=== PATIENT | female | born 1960 | race Caucasian/White ===

== ENCOUNTER 2021-04-28 21:37 | Emergency (ER) | payer MEDICARE, OTHER ==
[~2021-04-28 21:37] MED LIST: ASCORBIC ACID500 MG PO; ATROVENT HFA12.9 GM INH; BACTRIM DS TAB1 EACH PO; CELEXA10 MG PO; CLARITIN10 M2 PO; COLESTIPOL HCL1 GM PO; FLORINEF0.1 MG PO; FOLIC ACID1 MG PO; IBUPROFEN800 MG PO; IMODIUM2 MG PO; LEVAQUIN500 MG PO; LEVOTHYROXINE100 MCG PO; MEDROL 4MG DOSEP4 MG PO; PRILOSEC20 MG PO; PROTONIX 40MG T40 MG PO; PROVENTIL HFA6.7 GM INH; SEROQUEL 25MG T25 MG PO; SYNTHROID50 MCG PO; SYNTHROID75 MCG PO; VITAMIN D-32000 UNIT PO; VITAMIN D3 PO; ZOFRAN4 MG PO; ZPAK PO
[2021-04-28] MEDS ORDERED: AUGMENTIN 875-1 EACH PO (23:43)
== END 2021-04-29 00:10 | disposition home or self-care (01) ==
LOC: FER 21:37
DX: S01.21XA Laceration without foreign body of nose, initial encounter (principal); W18.12XA Fall from or off toilet with subsequent striking against object, initial encounter; Y92.002 Bathroom of unspecified non-institutional (private) residence as the place of occurrence of the external cause
CPT/HCPCS: 70486

== ENCOUNTER 2021-05-17 20:51 | Day surgery (SDCO) | payer MEDICARE, OTHER ==
[~2021-05-17] VITALS: Ht 185.4 cm; Wt 106.8 kg
[~2021-05-17 20:51] MED LIST changes: +AUGMENTIN 875-1 EACH PO
[2021-05-17 21:37] LABS: BASOPHIL 1.2 % (0-2); EOSINOPHIL 0.3 % (0-5); HCT 37.2 % (37.0-47.0); HGB 12.2 g/dl (12.5-16.0); LYMPHOCYTE 13.5 % (15-48); MCH 33.6 pg (25.0-31.0); MCHC 32.8 g/dL (32.0-36.0); MCV 102.5 fL (78.0-100.0); MONOCYTE 12.9 % (0-12); MPV 9.8 fL (6.0-9.5); NEUTROPHIL 70.3 % (41-80); NRBC 0; PLT 205 K/uL (150-400); RBC 3.63 M/uL (4.20-5.40); RDW 13.9 % (11.5-14.0); WBC 3.4 K/uL (4.0-10.5)
[2021-05-17 22:08] LABS: LACTIC ACID 1.5 mmol/L (0.4-1.9)
[2021-05-17 22:17] LABS: ALBUMIN 2.8 g/dL (3.4-5.0); BILIRUBIN - TOTAL 0.3 mg/dL (0.2-1.0); BUN/CREAT RATIO (CALC) 15.6 RATIO; C-REACTIVE PROTEIN 8.8 mg/dL (<=0.90); CREATININE 0.96 mg/dL (0.51-0.95); FT4 (FREE T4) 0.9 ng/dL (0.76-1.46); GLOBULIN (CALCULATION) 3.8 g/dL; POTASSIUM 3.9 mmol/L (3.5-5.1); TOTAL PROTEIN 6.6 g/dL (6.4-8.2)
[2021-05-17 22:55] LABS: CORONAVIRUS 2019 SARS-COV-2 NEGATIVE (NEGATIVE); INFLUENZA A NAA NEGATIVE (NEGATIVE)
[2021-05-17 23:44] LABS: BILIRUBIN NEGATIVE (NEGATIVE); BLOOD NEGATIVE Ery/uL (NEGATIVE); CLARITY CLEAR (CLEAR); COLOR YELLOW (YELLOW); GLUCOSE (U) NORMAL (NORMAL); LEUKOCYTES NEGATIVE Leu/uL (NEGATIVE); NITRITE NEGATIVE (NEGATIVE); PROTEIN NEGATIVE (NEGATIVE); SPECIFIC GRAVITY 1.015 (1.001-1.030); UROBILINOGEN 0.2 mg/dL (0.2-1.0)
[2021-05-18] MEDS ORDERED: VITAMIN D325 MC2 PO (02:24)
[2021-05-18] MEDS ORDERED: DEPAKOTE SPRIN125 M2 PO (02:26)
[2021-05-18] MEDS ORDERED: LEVOTHYROXINE88 MC1 PO (02:27)
[2021-05-18] MEDS ORDERED: PROTONIX 40MG T40 MG PO (02:27)
[2021-05-18] MEDS ORDERED: SEROQUEL 100MG100 MG PO (02:28)
[2021-05-19 07:48] LABS: BASOPHIL 0.5 % (0-2); EOSINOPHIL 2.1 % (0-5); HCT 35.2 % (37.0-47.0); HGB 11.6 g/dl (12.5-16.0); LYMPHOCYTE 54.8 % (15-48); MCH 33.9 pg (25.0-31.0); MCV 102.9 fL (78.0-100.0); MONOCYTE 14.4 % (0-12); MPV 10.3 fL (6.0-9.5); NEUTROPHIL 27.1 % (41-80); NRBC 0; PLT 150 K/uL (150-400); RBC 3.42 M/uL (4.20-5.40); RDW 13.9 % (11.5-14.0)
[2021-05-19 07:53] LABS: WBC 1.9 K/uL (4.0-10.5)
[2021-05-19 08:11] LABS: ALBUMIN 2.3 g/dL (3.4-5.0); BILIRUBIN - TOTAL 0.2 mg/dL (0.2-1.0); BUN/CREAT RATIO (CALC) 12.7 RATIO; C-REACTIVE PROTEIN 6.2 mg/dL (<=0.90); CREATININE 0.71 mg/dL (0.51-0.95); GLOBULIN (CALCULATION) 3.8 g/dL; POTASSIUM 3.1 mmol/L (3.5-5.1); TOTAL PROTEIN 6.1 g/dL (6.4-8.2)
--- NOTE | 2021-05-19 16:59 | NUR ---
05/19 Ms. Jimenez has a dx of Downs Syndrome and Autism. She has a guardian, Dottie Pro. Ms. Jimenez lives with a caregiver, Linette Tate, [phone]. She has 16 hours per day of caregivers through [employer]. Discharge plans are for her to return to the caregivers home. She does not use any DME or HH services.
[2021-05-20 06:54] LABS: BASOPHIL 1.1 % (0-2); EOSINOPHIL 1.4 % (0-5); HCT 40.6 % (37.0-47.0); HGB 13.4 g/dl (12.5-16.0); LYMPHOCYTE 51.6 % (15-48); MCH 33.4 pg (25.0-31.0); MCV 101.2 fL (78.0-100.0); MONOCYTE 13.7 % (0-12); NEUTROPHIL 31.8 % (41-80); NRBC 0; PLT 176 K/uL (150-400); RBC 4.01 M/uL (4.20-5.40); RDW 13.5 % (11.5-14.0); WBC 2.8 K/uL (4.0-10.5)
[2021-05-20 07:24] LABS: ALBUMIN 2.7 g/dL (3.4-5.0); BILIRUBIN - TOTAL 0.2 mg/dL (0.2-1.0); BUN/CREAT RATIO (CALC) 17.4 RATIO; C-REACTIVE PROTEIN 5.7 mg/dL (<=0.90); CREATININE 0.69 mg/dL (0.51-0.95); GLOBULIN (CALCULATION) 3.9 g/dL; POTASSIUM 4.1 mmol/L (3.5-5.1); TOTAL PROTEIN 6.6 g/dL (6.4-8.2)
[2021-05-21 07:58] LABS: BASOPHIL 1.3 % (0-2); HGB 13.2 g/dl (12.5-16.0); MCH 33.6 pg (25.0-31.0); MCV 101.8 fL (78.0-100.0); NEUTROPHIL 35.8 % (41-80); NRBC 0; PLT 216 K/uL (150-400); RBC 3.93 M/uL (4.20-5.40); RDW 13.5 % (11.5-14.0)
[2021-05-21 08:01] LABS: LYMPHOCYTE 50.2 % (15-48)
[2021-05-21 08:16] LABS: ALBUMIN 2.8 g/dL (3.4-5.0); BILIRUBIN - TOTAL 0.2 mg/dL (0.2-1.0); BUN/CREAT RATIO (CALC) 19.2 RATIO; CREATININE 0.78 mg/dL (0.51-0.95); GLOBULIN (CALCULATION) 4.8 g/dL; MAGNESIUM 2.4 mg/dL (1.8-2.4); POTASSIUM 3.9 mmol/L (3.5-5.1); TOTAL PROTEIN 7.6 g/dL (6.4-8.2)
== END 2021-05-21 15:57 | disposition home or self-care (01) ==
LOC: FER 20:51 → FMS 05-18 00:31
PROVIDERS: Allergy & Immunology Allergy; Emergency Medicine Emergency Medical Services; Hospitalist; Internal Medicine; ADMIT Family Medicine
DX: R50.9 Fever, unspecified (principal); D72.819 Decreased white blood cell count, unspecified; R63.4 Abnormal weight loss; Q90.9 Down syndrome, unspecified; E27.1 Primary adrenocortical insufficiency; F84.0 Autistic disorder; G91.9 Hydrocephalus, unspecified; E03.9 Hypothyroidism, unspecified; E87.6 Hypokalemia; F31.9 Bipolar disorder, unspecified; R05.9 Cough, unspecified; R27.0 Ataxia, unspecified; D50.9 Iron deficiency anemia, unspecified; N18.2 Chronic kidney disease, stage 2 (mild); R41.82 Altered mental status, unspecified; Z20.822 Contact with and (suspected) exposure to COVID-19; Z86.16 Personal history of COVID-19
CPT/HCPCS: 36415; 70450; 70551; 71045; 71260; 80048; 80053; 81003; 82150; 82550; 82607; 82728; 83605; 83690; 83735; 84145; 84439; 84443; 84484; 85025; 86140; 87040; 87088; 93005; 97162; 97166; 97530-GP; 97535; G0378; J0692; J1650; J2543; J7030; Q9967; U0002

== ENCOUNTER 2021-06-24 13:15 | Inpatient (IN) | payer MEDICARE, OTHER ==
[~2021-06-24] VITALS: Ht 144.8 cm; Wt 42.4 kg
[~2021-06-24 13:15] MED LIST changes: +DEPAKOTE SPRIN125 M2 PO; +LEVOTHYROXINE88 MC1 PO; +SEROQUEL 100MG100 MG PO; +VITAMIN D325 MC2 PO
[2021-06-24 15:36] LABS: BASOPHIL 0.5 % (0-2); EOSINOPHIL 0.5 % (0-5); HCT 37.5 % (37.0-47.0); HGB 11.8 g/dl (12.5-16.0); LYMPHOCYTE 5.3 % (15-48); MCH 33.4 pg (25.0-31.0); MCHC 31.5 g/dL (32.0-36.0); MCV 106.2 fL (78.0-100.0); MONOCYTE 8.9 % (0-12); MPV 10.4 fL (6.0-9.5); NEUTROPHIL 84.3 % (41-80); NRBC 0; PLT 176 K/uL (150-400); RBC 3.53 M/uL (4.20-5.40); RDW 15.6 % (11.5-14.0); WBC 12.8 K/uL (4.0-10.5)
[2021-06-24 16:12] LABS: ALBUMIN 2.4 g/dL (3.4-5.0); ALKALINE PHOSHATASE 77 U/L (46-116); ALT 31 U/L (14-59); AST 32 U/L (15-37); BILIRUBIN - TOTAL 0.4 mg/dL (0.2-1.0); BUN 26 mg/dL (7-18); BUN/CREAT RATIO (CALC) 20.8 RATIO; C-REACTIVE PROTEIN >18.00 mg/dL (<=0.90); CHLORIDE 112 mmol/L (98-107); CO2 (BICARBONATE) 29 mmol/L (21-32); CREATININE 1.25 mg/dL (0.51-0.95); GLOBULIN (CALCULATION) 3.7 g/dL; GLUCOSE 99 mg/dL (74-106); POTASSIUM 3.6 mmol/L (3.5-5.1); TOTAL PROTEIN 6.1 g/dL (6.4-8.2)
[2021-06-24 16:14] LABS: BILIRUBIN 1+ mg/dL (NEGATIVE); BLOOD NEGATIVE Ery/uL (NEGATIVE); CLARITY CLEAR (CLEAR); COLOR YELLOW (YELLOW); GLUCOSE (U) NORMAL (NORMAL); LEUKOCYTES NEGATIVE Leu/uL (NEGATIVE); NITRITE NEGATIVE (NEGATIVE); PROTEIN TRACE (LOW) mg/dL (NEGATIVE); SPECIFIC GRAVITY >=1.030 (1.001-1.030); pH 5.5 (5.0-9.0)
[2021-06-24 16:16] LABS: CORONAVIRUS 2019 SARS-COV-2 NEGATIVE (NEGATIVE); INFLUENZA A NAA NEGATIVE (NEGATIVE)
[2021-06-24 16:19] LABS: LACTIC ACID 0.9 mmol/L (0.4-1.9)
[2021-06-24 16:27] LABS: AMORPHOUS URATES CRYSTALS TRACE; BACTERIA TRACE; MUCOUS TRACE; SQUAMOUS EPITHELIAL CELLS RARE; URINARY RBC RARE
[2021-06-25 06:02] LABS: BASOPHIL 0.4 % (0-2); EOSINOPHIL 1.7 % (0-5); HGB 10.1 g/dl (12.5-16.0); LYMPHOCYTE 9.1 % (15-48); MCH 33.1 pg (25.0-31.0); MCHC 30.6 g/dL (32.0-36.0); MCV 108.2 fL (78.0-100.0); MONOCYTE 7.6 % (0-12); MPV 10.9 fL (6.0-9.5); NEUTROPHIL 80.6 % (41-80); NRBC 0; PLT 166 K/uL (150-400); RBC 3.05 M/uL (4.20-5.40); RDW 15.2 % (11.5-14.0); WBC 7.8 K/uL (4.0-10.5)
[2021-06-25 06:16] LABS: C-REACTIVE PROTEIN 14.5 mg/dL (<=0.90); CREATININE 0.87 mg/dL (0.51-0.95); POTASSIUM 3.9 mmol/L (3.5-5.1)
[2021-06-26 06:52] LABS: BASOPHIL 0.7 % (0-2); HCT 34.6 % (37.0-47.0); HGB 10.9 g/dl (12.5-16.0); LYMPHOCYTE 15.8 % (15-48); MCH 33.4 pg (25.0-31.0); MCHC 31.5 g/dL (32.0-36.0); MCV 106.1 fL (78.0-100.0); MONOCYTE 8.8 % (0-12); MPV 11.2 fL (6.0-9.5); NEUTROPHIL 71.5 % (41-80); NRBC 0; PLT 201 K/uL (150-400); RBC 3.26 M/uL (4.20-5.40); RDW 14.7 % (11.5-14.0)
[2021-06-26 07:11] LABS: BUN/CREAT RATIO (CALC) 12.9 RATIO; CREATININE 0.7 mg/dL (0.51-0.95); POTASSIUM 2.9 mmol/L (3.5-5.1)
[2021-06-26 14:51] LABS: BUN/CREAT RATIO (CALC) 19.4 RATIO; CREATININE 0.67 mg/dL (0.51-0.95); POTASSIUM 3.1 mmol/L (3.5-5.1)
[2021-06-26] MEDS ORDERED: VIBRAMYCIN100 MG PO (16:48)
== END 2021-06-26 18:00 | disposition home or self-care (01) | DRG 193 ==
LOC: FER 13:15 → FTCU 17:19 → FMS 06-25 12:02
PROVIDERS: Emergency Medicine; ADMIT Family Medicine
DX: J18.9 Pneumonia, unspecified organism (principal); G93.41 Metabolic encephalopathy; N17.9 Acute kidney failure, unspecified; N30.00 Acute cystitis without hematuria; E87.6 Hypokalemia; D53.9 Nutritional anemia, unspecified; E86.0 Dehydration; Z20.822 Contact with and (suspected) exposure to COVID-19; E03.9 Hypothyroidism, unspecified; Q90.9 Down syndrome, unspecified; Z98.42 Cataract extraction status, left eye; Z98.41 Cataract extraction status, right eye; Z98.890 Other specified postprocedural states
CPT/HCPCS: 36415; 71045; 80048; 80053; 81001; 83605; 84145; 85025; 86140; 87040; 87088; 93005; 97162; 97530-GP; J0696; J1650; J1956; J7030; J7050; U0002

== ENCOUNTER 2021-07-26 14:29 | Emergency (ER) | payer MEDICARE, OTHER ==
[~2021-07-26 14:29] MED LIST changes: +VIBRAMYCIN100 MG PO
[2021-07-26 15:55] LABS: BASOPHIL 1.2 % (0-2); EOSINOPHIL 0.7 % (0-5); HCT 37.3 % (37.0-47.0); HGB 11.9 g/dl (12.5-16.0); LYMPHOCYTE 14.9 % (15-48); MCH 33.3 pg (25.0-31.0); MCHC 31.9 g/dL (32.0-36.0); MCV 104.5 fL (78.0-100.0); MONOCYTE 11.9 % (0-12); MPV 9.7 fL (6.0-9.5); NEUTROPHIL 70.6 % (41-80); NRBC 0; PLT 278 K/uL (150-400); RBC 3.57 M/uL (4.20-5.40); RDW 15.1 % (11.5-14.0); WBC 5.6 K/uL (4.0-10.5)
[2021-07-26 16:08] LABS: INR 1.28 (0.9-1.2); PROTHROMBIN TIME 15.3 SECONDS (11.8-13.4); PTT 31.2 SECONDS (24.4-34.7)
[2021-07-26 16:17] LABS: ALBUMIN 2.8 g/dL (3.4-5.0); BILIRUBIN - TOTAL 0.2 mg/dL (0.2-1.0); BUN/CREAT RATIO (CALC) 16.2 RATIO; CREATININE 0.68 mg/dL (0.51-0.95); GLOBULIN (CALCULATION) 3.9 g/dL; TOTAL PROTEIN 6.7 g/dL (6.4-8.2)
== END 2021-07-26 17:10 | disposition home or self-care (01) ==
LOC: FER 14:29
PROVIDERS: Emergency Medicine
DX: R11.10 Vomiting, unspecified (principal); K59.00 Constipation, unspecified
CPT/HCPCS: 36415; 71045; 80053; 82607; 82746; 83690; 85025; 85610; 85730

== ENCOUNTER 2021-10-04 13:02 | Inpatient (IN) | payer MEDICARE, OTHER ==
[~2021-10-04] VITALS: Ht 137.2 cm; Wt 37.7 kg
[2021-10-04 14:06] LABS: BILIRUBIN NEGATIVE (NEGATIVE); BLOOD NEGATIVE Ery/uL (NEGATIVE); CLARITY CLEAR (CLEAR); COLOR YELLOW (YELLOW); GLUCOSE (U) NORMAL (NORMAL); LEUKOCYTES NEGATIVE Leu/uL (NEGATIVE); NITRITE NEGATIVE (NEGATIVE); PROTEIN NEGATIVE (NEGATIVE); SPECIFIC GRAVITY 1.015 (1.001-1.030)
[2021-10-04 14:15] LABS: BASOPHIL 0.8 % (0-2); EOSINOPHIL 0.4 % (0-5); HCT 40.5 % (37.0-47.0); HGB 13.3 g/dl (12.5-16.0); LYMPHOCYTE 15.8 % (15-48); MCH 33.9 pg (25.0-31.0); MCHC 32.8 g/dL (32.0-36.0); MCV 103.3 fL (78.0-100.0); MONOCYTE 10.5 % (0-12); NEUTROPHIL 71.4 % (41-80); NRBC 0; PLT 174 K/uL (150-400); RBC 3.92 M/uL (4.20-5.40); RDW 13.9 % (11.5-14.0)
[2021-10-04 14:16] LABS: WBC 5.3 K/uL (4.0-10.5)
[2021-10-04 14:36] LABS: BUN/CREAT RATIO (CALC) 11.2 RATIO; CREATININE 0.89 mg/dL (0.51-0.95); POTASSIUM 3.7 mmol/L (3.5-5.1)
[2021-10-04 14:42] LABS: CORONAVIRUS 2019 SARS-COV-2 NEGATIVE (NEGATIVE); INFLUENZA A NAA NEGATIVE (NEGATIVE)
[2021-10-04] MEDS ORDERED: ALLEGRA ALLERG180 MG PO (17:20)
--- NOTE | 2021-10-04 18:28 | NUR ---
PER REPORT FROM ER BP 177/85 AT 1828
[2021-10-05 05:51] LABS: BASOPHIL 0.1 % (0-2); EOSINOPHIL 0 % (0-5); HCT 36.6 % (37.0-47.0); LYMPHOCYTE 6.2 % (15-48); MCH 33.9 pg (25.0-31.0); MCHC 32.8 g/dL (32.0-36.0); MCV 103.4 fL (78.0-100.0); MONOCYTE 6.2 % (0-12); MPV 10.3 fL (6.0-9.5); NRBC 0; PLT 160 K/uL (150-400); RBC 3.54 M/uL (4.20-5.40); RDW 13.9 % (11.5-14.0)
[2021-10-05 05:54] LABS: WBC 13.8 K/uL (4.0-10.5)
[2021-10-05 06:08] LABS: BUN/CREAT RATIO (CALC) 11.4 RATIO; C-REACTIVE PROTEIN 13.8 mg/dL (<=0.90); CREATININE 1.4 mg/dL (0.51-0.95); IRON % SATURATION 8.3 %SAT (20-50); POTASSIUM 4.1 mmol/L (3.5-5.1)
--- NOTE | 2021-10-05 15:49 | NUR ---
RD visited room to obtain information re; wt history, food preferences; clinical safety specialist present providing some information however requested talk with primary caregiver for more specific information. will revisit tomorrow. will add ONS to trays and cont POC
[2021-10-06 06:51] LABS: BASOPHIL 0.2 % (0-2); EOSINOPHIL 0.2 % (0-5); HCT 33.1 % (37.0-47.0); LYMPHOCYTE 8.8 % (15-48); MCH 34.1 pg (25.0-31.0); MCHC 33.2 g/dL (32.0-36.0); MCV 102.5 fL (78.0-100.0); MONOCYTE 3.7 % (0-12); MPV 10.2 fL (6.0-9.5); NEUTROPHIL 86.1 % (41-80); NRBC 0; PLT 172 K/uL (150-400); RBC 3.23 M/uL (4.20-5.40); RDW 14.2 % (11.5-14.0); WBC 13.3 K/uL (4.0-10.5)
[2021-10-06 07:20] LABS: BUN/CREAT RATIO (CALC) 18.2 RATIO; CREATININE 1.1 mg/dL (0.51-0.95); POTASSIUM 3.1 mmol/L (3.5-5.1)
[2021-10-07 07:18] LABS: BASOPHIL 0.3 % (0-2); EOSINOPHIL 0.1 % (0-5); HCT 32.6 % (37.0-47.0); HGB 10.7 g/dl (12.5-16.0); LYMPHOCYTE 10.1 % (15-48); MCH 33.5 pg (25.0-31.0); MCHC 32.8 g/dL (32.0-36.0); MCV 102.2 fL (78.0-100.0); MONOCYTE 6.2 % (0-12); MPV 10.2 fL (6.0-9.5); NEUTROPHIL 81.7 % (41-80); NRBC 0; PLT 191 K/uL (150-400); RBC 3.19 M/uL (4.20-5.40); RDW 13.9 % (11.5-14.0); WBC 7.6 K/uL (4.0-10.5)
[2021-10-07 07:31] LABS: BUN/CREAT RATIO (CALC) 18.1 RATIO; CREATININE 0.83 mg/dL (0.51-0.95); POTASSIUM 3.7 mmol/L (3.5-5.1)
--- NOTE | 2021-10-07 12:45 | NUR ---
10/07 21 Ms. Jimenez's guardian is Dottie Venita - [phone]. Ms. Jimenez lives with her caregiver, Linette Tate, . She has a hospital bed, bed alarm, s. chair and transfer chair. - [facility] provides case management. [facility]
[2021-10-08 06:37] LABS: BASOPHIL 1.3 % (0-2); EOSINOPHIL 0.4 % (0-5); HCT 33.4 % (37.0-47.0); LYMPHOCYTE 18.5 % (15-48); MCH 33.5 pg (25.0-31.0); MCHC 32.9 g/dL (32.0-36.0); MCV 101.8 fL (78.0-100.0); MONOCYTE 7.1 % (0-12); MPV 10.3 fL (6.0-9.5); NEUTROPHIL 67.3 % (41-80); NRBC 0; PLT 203 K/uL (150-400); RBC 3.28 M/uL (4.20-5.40); RDW 14.1 % (11.5-14.0)
[2021-10-08 06:45] LABS: WBC 5.5 K/uL (4.0-10.5)
[2021-10-08 07:00] LABS: BUN/CREAT RATIO (CALC) 14.1 RATIO; CREATININE 0.78 mg/dL (0.51-0.95); POTASSIUM 3.1 mmol/L (3.5-5.1)
--- NOTE | 2021-10-08 15:46 | NUR ---
10/08/21 Dottie Jimenez, guardian, has requested Hospice services. A referral was made to [facility]. Ms. Ramesh will contact Ms. Pro. Dr. Llanos will review for appropriateness for Hospice. Dr. Llanos is also patient's PCP.
[2021-10-09 07:21] LABS: BASOPHIL 2.6 % (0-2); HCT 35.4 % (37.0-47.0); HGB 11.5 g/dl (12.5-16.0); LYMPHOCYTE 23.5 % (15-48); MCH 33.1 pg (25.0-31.0); MCHC 32.5 g/dL (32.0-36.0); MONOCYTE 10.2 % (0-12); NEUTROPHIL 52.3 % (41-80); NRBC 0; PLT 222 K/uL (150-400); RBC 3.47 M/uL (4.20-5.40); RDW 13.9 % (11.5-14.0); WBC 3.8 K/uL (4.0-10.5)
[2021-10-09 07:42] LABS: BUN/CREAT RATIO (CALC) 8.6 RATIO; CREATININE 0.7 mg/dL (0.51-0.95)
--- NOTE | 2021-10-09 13:15 | NUR ---
10/09/21 Hospice has accepted patient for admission today. 02 has been delivered to home and hospital. Linette, caregiver, will transport home, .
[2021-10-09] MEDS ORDERED: NEBULIZER UNIT NEB (13:42)
[2021-10-09] MEDS ORDERED: DUONEB 2.5-0.5M1 AMP NEB (13:42)
[2021-10-09] MEDS ORDERED: CLARITIN10 MG PO (13:42)
[2021-10-09] MEDS ORDERED: MUCINEX 600MG600 MG PO (13:42)
[2021-10-09] MEDS ORDERED: AMOX TR-K200 MG/5 M PO (13:42)
[2021-10-09] MEDS ORDERED: POTASSIUM CHLO20 ME1 PO (13:46)
== END 2021-10-09 15:20 | disposition hospice, home (50) | DRG 871 ==
LOC: FER 13:02 → FMS 16:28
PROVIDERS: Nurse Practitioner; Nurse Practitioner Family; ADMIT Family Medicine
DX: A41.9 Sepsis, unspecified organism (principal); J69.0 Pneumonitis due to inhalation of food and vomit; J96.01 Acute respiratory failure with hypoxia; N17.9 Acute kidney failure, unspecified; F84.0 Autistic disorder; R65.20 Severe sepsis without septic shock; R55 Syncope and collapse; Z20.822 Contact with and (suspected) exposure to COVID-19; E03.9 Hypothyroidism, unspecified; D50.9 Iron deficiency anemia, unspecified; R63.4 Abnormal weight loss; F41.9 Anxiety disorder, unspecified; F32.A Depression, unspecified; Z79.899 Other long term (current) drug therapy; Z98.41 Cataract extraction status, right eye; Z98.42 Cataract extraction status, left eye
CPT/HCPCS: 36415; 36600; 71045; 71275; 80048; 81003; 82803; 83540; 83550; 84145; 84484; 85025; 85379; 86140; 87040; 92526; 93005; 94010; 94640; 94760; 94762; 97162; 97166; G0378; J1650; J2020; J2543; J3480; J7030; Q9967; U0002